=== PATIENT | male | born 1975 | race Caucasian/White ===

== ENCOUNTER 2020-04-28 10:58 | Inpatient (IN) | payer SELFPAY ==
[~2020-04-28] VITALS: Ht 175.3 cm; Wt 78.0 kg
[2020-04-28] MEDS ORDERED: SODIUM CHLORIDE 0.9% 1,000 ML IV ONE (11:26)
[2020-04-28] MEDS ORDERED: MORPHINE SULFATE 4 MG/ML CPJ (NOT FOR IM USE) IV STA (11:26)
[2020-04-28] MEDS ORDERED: ONDANSETRON HCL 4MG/2ML INJ IV STA (11:26)
[2020-04-28 13:09] LABS: BASOPHILS % 0.5 % (0.0-2.0); EOSINOPHILS % 0.2 % (0.0-5.0); HEMOGLOBIN. 15.8 g/dL (14.0-18.0); LYMPHOCYTES % 11.5 % (20.0-50.0); MEAN CORPUSCULAR HEMOGLOBIN 32.6 pg (28.0-32.0); MEAN CORPUSCULAR VOLUME 92.7 fL (80.0-94.0); MEAN PLATELET VOLUME 8.1 fl (7.4-10.4); MONOCYTES % 5.6 % (2.0-8.0); NEUTROPHILS % 82.2 % (40.0-76.0); PLATELET 151 x1000/uL (130-400); RED BLOOD CELL COUNT 4.85 mill/uL (4.7-6.1); RED CELL DISTRIBUTION WIDTH 13.6 % (11.6-14.6)
[2020-04-28 13:14] LABS: CHLORIDE 111 mEq/L (98-107)
[2020-04-28 13:33] LABS: INR 1.1; PROTHROMBIN TIME 11.7 sec (9.6-11.0)
[2020-04-28] MEDS ORDERED: ONDANSETRON HCL 4MG/2ML INJ IV PRN (14:00)
[2020-04-28] MEDS ORDERED: DOCUSATE SODIUM 100MG CAPSULE PO PRN (14:00)
[2020-04-28] MEDS ORDERED: MAGNESIUM/ALUMINUM HYDROXIDE/SIMETHICONE 30ML UDC PO PRN (14:00)
[2020-04-28] MEDS ORDERED: ACETAMINOPHEN 325MG TABLET PO PRN ×2 (14:00)
[2020-04-28] MEDS ORDERED: IPRATROPIUM/ALBUTEROL 0.5-3(2.5)MG/3ML NEB ORI PRN (14:00)
[2020-04-28] MEDS ORDERED: CLONIDINE 0.1MG TABLET PO PRN (14:00)
[2020-04-28] MEDS ORDERED: ENOXAPARIN 40MG/0.4ML SYR SUBCUT SCH (14:00)
[2020-04-28] MEDS ORDERED: ZOLPIDEM TARTRATE 5MG TABLET PO PRN (14:00)
[2020-04-28] MEDS ORDERED: NITROGLYCERIN 0.4MG TABLET SL SL PRN (14:00)
[2020-04-28] MEDS ORDERED: LORAZEPAM 0.5MG TABLET PO PRN (14:00)
[2020-04-28] MEDS ORDERED: GUAIFENESIN 200MG/10ML SUGAR FREE UDC PO PRN (14:00)
[2020-04-28] MEDS ORDERED: TRAMADOL 50MG TABLET PO PRN (14:00)
[2020-04-28] MEDS: ZINC SULFATE 220 MG ( 50 ) CAPSULE PO SCH (14:59)
[2020-04-28 16:00] VITALS: BP 144/84
[2020-04-28] MEDS: MORPHINE SULFATE 4 MG/ML CPJ (NOT FOR IM USE) IV PRN (17:07)
[2020-04-28 17:21] VITALS: BP 144/84
[2020-04-28] MEDS ORDERED: PNEUMOCOCCAL 23-VAL P-SAC VAC 0.5 ML IM ONE (18:00)
[2020-04-28 20:00] VITALS: BP 125/80
[2020-04-28] MEDS ORDERED: MORPHINE SULFATE 4 MG/ML CPJ (NOT FOR IM USE) IV NR (21:30)
[2020-04-28] MEDS: ASCORBIC ACID 500 MG TABLET PO SCH (21:39)
[2020-04-28] MEDS: FAMOTIDINE 20MG TABLET PO SCH (21:39)
[2020-04-28 23:01] LABS: CLARITY URINE CLEAR (CLEAR); COLOR URINE YELLOW (YELLOW); KETONES URINE NEGATIVE (NEGATIVE); LEUKOCYTE ESTERASE URINE NEGATIVE (NEGATIVE); NITRITE URINE NEGATIVE (NEGATIVE); OCCULT BLOOD URINE TRACE (NEGATIVE); PH URINE 5.5 (4.5-8.0); PROTEIN URINE NEGATIVE (NEGATIVE); SPECIFIC GRAVITY URINE 1.009 (1.005-1.030); UROBILINOGEN URINE 0.2 E.U./dL (0.2-1.0)
[2020-04-28 23:12] LABS: *AMPHETAMINES SCREEN URINE NEGATIVE (NEGATIVE); *BARBITURATES SCREEN URINE NEGATIVE (NEGATIVE); *BENZODIAZEPINES SCREEN URINE NEGATIVE (NEGATIVE); *COCAINE SCREEN URINE NEGATIVE (NEGATIVE)
[2020-04-28 23:13] LABS: CANNABINOID URINE SCREEN NEGATIVE (NEGATIVE); METHADONE URINE SCREEN NEGATIVE (NEGATIVE); OPIATES URINE SCREEN PRESUMTIVE POSITIVE (NEGATIVE); PHENCYCLIDINE URINE SCREEN NEGATIVE (NEGATIVE)
[2020-04-29 00:28] VITALS: BP 136/94
[2020-04-29] MEDS: MORPHINE SULFATE 4 MG/ML CPJ (NOT FOR IM USE) IV PRN ×2 (02:58→09:08)
[2020-04-29 04:00] VITALS: BP 136/45
[2020-04-29 08:00] VITALS: BP 133/82
[2020-04-29] MEDS: FAMOTIDINE 20MG TABLET PO SCH ×2 (09:06→21:10)
[2020-04-29] MEDS: ASCORBIC ACID 500 MG TABLET PO SCH ×2 (09:06→21:10)
[2020-04-29] MEDS: ZINC SULFATE 220 MG ( 50 ) CAPSULE PO SCH (09:07)
[2020-04-29 12:00] VITALS: BP 109/73
[2020-04-29] MEDS ORDERED: BUPIVACAINE HCL/PF 0.25% (2.5MG/ML) 10ML ONE (12:35)
[2020-04-29] MEDS ORDERED: VANCOMYCIN HCL 1 GM/VIAL ONE (12:35)
[2020-04-29] MEDS ORDERED: LIDOCAINE HCL 2% JELLY 5ML ONE (12:55)
[2020-04-29] MEDS ORDERED: SODIUM CHLORIDE 0.9% 10ML VIAL ONE ×2 (13:28→14:29)
[2020-04-29] MEDS ORDERED: CEFAZOLIN SODIUM 1000MG/VIAL ONE (13:28)
[2020-04-29] MEDS ORDERED: FENTANYL CITRATE/PF 50MCG/ML 2ML VIAL ONE (13:29)
[2020-04-29] MEDS ORDERED: LIDOCAINE HCL/PF 1% 10 MG/ML 5ML VIAL ONE (13:29)
[2020-04-29] MEDS ORDERED: PROPOFOL 200MG/20ML VIAL IV ONE (13:29)
[2020-04-29] MEDS ORDERED: MIDAZOLAM HCL 2 MG/2 ML VIAL ONE (13:29)
[2020-04-29] MEDS ORDERED: ROCURONIUM BROMIDE 10MG/ML VIAL 5ML IV ONE (13:33)
[2020-04-29] MEDS ORDERED: BUPIVACAINE/EPINEPH/PF 0.25%/0.0005 10ML ONE (13:35)
[2020-04-29] MEDS ORDERED: ONDANSETRON HCL 4MG/2ML INJ ONE (13:46)
[2020-04-29] MEDS ORDERED: DEXAMETHASONE 4MG/ML 1ML VIAL ONE (13:46)
[2020-04-29] MEDS ORDERED: EPHEDRINE SULFATE 50MG/ML VIAL ONE (14:28)
[2020-04-29] MEDS ORDERED: BACITRACIN 50,000 UNITS/VIAL ONE (14:37)
[2020-04-29] MEDS ORDERED: SODIUM CHLORIDE 0.9% 1,000 ML IV ONE (15:35)
[2020-04-29] MEDS ORDERED: MORPHINE SULFATE 2 MG/ML CPJ (NOT FOR IM USE) IV PRN (15:45)
[2020-04-29] MEDS ORDERED: MEPERIDINE HCL/PF 25MG/ML CPJ IV PRN ×2 (15:45)
[2020-04-29] MEDS ORDERED: ONDANSETRON HCL 4MG/2ML INJ IV PRN (15:45)
[2020-04-29] MEDS: HYDROMORPHONE HCL/PF 2MG/ML CPJ IV PRN ×2 (17:05→17:15)
[2020-04-29 20:07] VITALS: BP 134/85
[2020-04-29 20:11] LABS: HEMATOCRIT 46.3 % (42.0-52.0); HEMOGLOBIN 15.9 g/dL (14.0-18.0)
[2020-04-29] MEDS: CEFAZOLIN 1000MG PREMIX 50 ML IV SCH (21:10)
[2020-04-29] MEDS ORDERED: CEFAZOLIN SODIUM 1000MG/VIAL IV SCH (22:00)
[2020-04-29] MEDS: TRAMADOL 50MG TABLET PO PRN (23:45)
[2020-04-30 00:17] VITALS: BP 113/77
[2020-04-30 04:00] VITALS: BP 122/80
[2020-04-30] MEDS: CEFAZOLIN 1000MG PREMIX 50 ML IV SCH ×2 (05:41→13:37)
[2020-04-30] MEDS ORDERED: CEPH-569 MT (06:46)
[2020-04-30] MEDS ORDERED: HYDR-3280 PO (06:46)
[2020-04-30 08:00] VITALS: BP 121/79
[2020-04-30] MEDS: ZINC SULFATE 220 MG ( 50 ) CAPSULE PO SCH (08:56)
[2020-04-30] MEDS: FAMOTIDINE 20MG TABLET PO SCH (08:57)
[2020-04-30] MEDS: ASCORBIC ACID 500 MG TABLET PO SCH (08:57)
[2020-04-30] MEDS: MORPHINE SULFATE 4 MG/ML CPJ (NOT FOR IM USE) IV PRN (09:15)
[2020-04-30] MEDS ORDERED: TRAM50TA94 MT (10:42)
[2020-04-30 12:00] VITALS: BP 126/72
[2020-04-30] MEDS: TRAMADOL 50MG TABLET PO PRN (13:40)
[2020-04-30] MEDS ORDERED: ENOXAPARIN 40MG/0.4ML SYR SUBCUT SCH (14:00)
[2020-04-30 14:21] VITALS: BP 126/72
== END 2020-04-30 15:03 | disposition home or self-care (01) | DRG 313 ==
LOC: ER 10:58 → MICUSO 13:17 → 6EST 16:30
PROVIDERS: ADMIT Internal Medicine; ATTEND Internal Medicine
PROC: 2W3LX1Z Immobilization of Right Lower Extremity using Splint (ICD-10-PCS; principal; 2020-04-28)
PROC: 0QSG34Z Reposition Right Tibia with Internal Fixation Device, Percutaneous Approach (ICD-10-PCS; 2020-04-29)
DX: S82.251A Displaced comminuted fracture of shaft of right tibia, initial encounter for closed fracture (principal); E83.51 Hypocalcemia; S82.451A Displaced comminuted fracture of shaft of right fibula, initial encounter for closed fracture; W18.30XA Fall on same level, unspecified, initial encounter; Y93.89 Activity, other specified; Y92.098 Other place in other non-institutional residence as the place of occurrence of the external cause; Z87.891 Personal history of nicotine dependence; Y99.8 Other external cause status
CPT/HCPCS: 36415; 71045; 73590; 73610; 76000; 80053; 80305; 80320; 81003; 83036; 85014; 85018; 85025; 86850; 86900; 93005; 93970; 97116; 97162; 97530; 99285; C1713; J0171; J0690; J1100; J1170; J1650; J2175; J2250; J2270; J2405; J2704; J3010; J3370; J3490; J7030; G0480